=== PATIENT | female | born 1985 | race Caucasian/White ===

== ENCOUNTER 2017-04-12 19:51 | Inpatient (IN) ==
[2017-04-12 13:14] LABS: Bilirubin,Urine Negative (Negative); Blood,Urine Negative (Negative); Color,Urine Yellow (Yellow); Glucose,Urine (UA) Normal (Normal); Ketones,Urine Trace mg/dL (Negative); Leukocyte Esterase,Urine Moderate (Negative); Nitrite,Urine Negative (Negative); PH,Urine 6.5 pH Units (5.0-8.0); Protein,Urine Negative (Neg-Trace); Specific Gravity,Urine 1.015 (1.010-1.025); Urobilinogen,Urine Normal (Normal)
[2017-04-12 13:17] LABS: Bacteria,Urine Few per hpf (None-Few); Hyaline Casts,Urine None Seen per lpf (None-Few); RBC,Urine 0-3 per hpf (0-3); Squamous Epithelial Cell,Urine Many per lpf (None-Few)
[2017-04-12 13:37] LABS: Clarity,Urine Clear (Clear)
--- NOTE | 2017-04-12 15:25 | OB/GYN History & Physical ---
Date of Encounter: 04/12/17 Time of Encounter: 15:18 Assessment and Plan (1) Dichorionic diamniotic twin in third trimester Current visit: Yes Status: Acute 34w4d gestation contractions with cervical change discussed patient with Dr. Grayson will continue to monitor at this time. Will admit for delivery if cervical change continues or SROM. History of Present Illness Chief complaint: Contractions, DI/DI twin HPI: Ms. Jaime is a 31 year old female at 34w4d presents to labor and delivery for evaluation following her OB appointment with Dr. Moreno. Patient reports contractions woke her up through the night and have continued. Patient reports cervix was closed last week and today she was 3cm dilated. Patient denies LOF or VB and reports +FM. Patient had a growth scan on 04/09/2017. Twin A vertex, placenta is posterior EFW 2179g. Twin B Vertex, anterior placenta and EFW 2199. Twins have a 9% difference in weight. Patient has NKDA. Blood type: O Negative, Rubella: Immune, Hep B: Nonreactive, GBS: Unknown. Past Med Surg Social Fam HX - Past Medical History Source: patient Medical history: no medical history Psychiatric history: no psych history - Past Surgical History Surgical History: no surgical history - Social History Smoking Status: Never smoker Smokeless Tobacco Status: No Alcohol use: none Drug use: none Current living situation: Home - Independent Activity Level: Independent ambulation Recent Out of Country Travel Within the Last 8 Weeks: No Exposure or Possible Exposure to Illness During Travel: No - Family History Father Hx Family Cardiac Disorders: Yes (bypass surgery) Hx Family Respiratory Disorders: No Hx Family Cancer: No Hx Family GI Disorders: No Hx Family Genitourinary Disorders: No Hx Family Endocrine Disorder: No Hx Family Musculoskeletal Disorders: No Hx Family Neuromuscular Disorders: No Hx Family Neurologic Disorders: No Hx Family HEENT Disorders: No Hx Family Autoimmune Disorders: No Hx Family Reproductive Disorders: No Hx Family Psychosocial Disorders: No Hx Family Medical Disorders: No Obstetrical History - Pregnancies : 2 Para: 1 Term: 1 : 0 Ab's: 0 Livin Medications and Allergies Aspirin 81 mg 04/12/17 [History] Pepcid 04/12/17 [History] Allergies No Known Allergies Allergy (Verified 04/12/17 12:34) Review of System OB - Constitutional Constitutional ROS IM: no chills, no fever(s), no headache(s) - Cardiovascular Cardiovascular: no chest pain, no edema, no palpitations, no syncope - Respiratory Respiratory: no cough, no dyspnea - Gastrointestinal Gastrointestinal: no abdominal pain, no constipation, no cramping, no diarrhea, no heartburn, no nausea, no vomiting - Genitourinary Genitourinary: no abnormal vaginal bleeding, no dysuria, no flank pain, no urinary frequency, no urinary urgency, no vaginal discharge, no vaginal odor, no vaginal pruritis Exam - Constitutional Constitutional: well developed, well nourished, no acute distress, average body habitus - HEENT HEENT: Normocephaly, Mucus Membranes Moist - Neck Neck exam: full ROM, supple - Lungs Respiratory exam: CTAB - Cardiovascular Cardiovascular exam: RRR, +S1, +S2 - Abdomen Abdomen: Present: bowel sounds normal, gravid, non tender - Extremities Extremities exam: full ROM, normal capillary refill, normal inspection Deep Tendon Reflex Grade: 2+ Normal - Cervix Dilation: 3 (3.5) Effacement: 80 Station: -1 - Uterus Uterus exam: Present: normal size, normal contour - Anus/Rectum Anus/Rectum: Present: normal perianal skin (FHR Twin A 135 bpm moderate variablity +15x15 accels no decels noted. FHR Twin B 145 bpm moderate variability +15x15 accels no decels. Contractions 6.5-7 min apart. ) Results Abnormal lab results Urine Ketones Trace mg/dL (Negative) H 04/12/17 12:56 Ur Leukocyte Esterase Moderate (Negative) H 04/12/17 12:56 Urine Microscopic WBC 3-5 per hpf (0-3) H 04/12/17 12:56 Ur Squamous Epith Cells Many per lpf (None-Few) H 04/12/17 12:56 Ur Culture Indicated? YES (NO) A 04/12/17 12:56 All other labs normal. - VTE Reasons for not Prescribing Prophylaxis: Treatment not Indicated - Low risk for VTE
[2017-04-12] MEDS: Ringers Solution, Lactated 1,000 ML IVC SCH (17:22)
[2017-04-12 17:32] LABS: Basophils # 0.1 K/mcL (0.0-0.2); Basophils % 0.6 %; Eosinophils # 0.1 K/mcL (0.0-0.6); Eosinophils % 0.9 %; Hematocrit 31.3 % (35.3-44.9); Hemoglobin 10.3 g/dL (11.5-15.4); Immature Granulocytes % 1.8 % (0-4); Lymphocytes # 2.2 K/mcL (0.6-4.6); Lymphocytes % 21.4 %; Mean Corpuscular HGB Conc 32.9 g/dL (31.6-35.5); Mean Corpuscular Hemoglobin 26.5 pg (28.0-33.3); Mean Corpuscular Volume 80.5 fL (83.0-100.0); Mean Platelet Volume 10.7 fL (9.4-12.4); Monocytes # 0.8 K/mcL (0.0-1.3); Monocytes % 7.6 %; Platelet Count 145 K/mcL (140-400); Red Blood Count 3.89 M/mcL (3.82-4.97); Red Cell Distribution Width 14.3 % (11.5-14.5); Segmented Neutrophils % 67.7 %
--- NOTE | 2017-04-12 19:30 | OB Labor Progress Note ---
Date of Encounter: 04/12/17 Time of Encounter: 19:26 Labor Progress Note - Subjective Subjective: Patient reports contractions are getting closer together. Patient reports pain is still tolerable. Discussed POC with patient. Patient denies any questions or concerns. - Cervix Cervix: 5/80/-1 - Heart Tones Heart Tones: Twin A: 145 bpm moderate variability +15x15 accels no decels noted. Cat. 1 tracing Twin B: 150 bpm moderate variability +15x15 accels no decels noted. Cat. 1 tracing - [place]: 3-5 min apart - Interventions Interventions: Sve - Plan Plan: Continue monitoring if not delivered repeat Steroids on 04/13/17 at 1818
[~2017-04-12 19:51] MED LIST: Betamethasone Acet/SodPhos 6 MG/ML MDV IM SCH; Penicillin G Potassium 5,000,000 UNIT in D5% in Water (Mini-Bag+) 100 ML IVPB ONE
[2017-04-12] MEDS: Penicillin G Potassium 2,500,000 UNIT in D5% in Water 100 ML IVPB SCH (21:20)
--- NOTE | 2017-04-12 21:37 | OB Labor Progress Note ---
Date of Encounter: 04/12/17 Time of Encounter: 21:35 Labor Progress Note - Subjective Subjective: Patient reports contraction are getting more regular and closer together. Patient reports pain is tolerable at this time. - Cervix Cervix: 6/80/-1 - Heart Tones Heart Tones: Twin A: FHR 145 bpm moderate variability +15x15 accels no decels noted. Twin B: FHR 150 bpm moderate variability +15x15 accels no decels noted. - [place]: 1-4 min apart - Interventions Interventions: SVE - Plan Plan: Continue labor management. Patient may have Nubain or epidural if desires for pain management.
--- NOTE | 2017-04-12 23:37 | OB Labor Progress Note ---
Date of Encounter: 04/12/17 Time of Encounter: 23:35 Labor Progress Note - Subjective Subjective: Patient breathing through contractions. Patient reports pain is getting stronger. - Cervix Cervix: 7/80/-1 - Heart Tones Heart Tones: Twin A: FHR 135 bpm moderate variability +15x15 accels no decels noted. Twin B: FHR 140 bpm moderate variability +15x15 accels no decels noted. - [place]: 1-3 min apart - Interventions Interventions: SVE - Plan Plan: Patient requesting epidural at this time. Anesthesia notified. Will continue labor management.
[2017-04-12] MEDS ORDERED: Epidural Premix (fent/bupiv) 110 ML EP SCH (23:45)
[2017-04-12] MEDS ORDERED: *HR* FentaNYL (PF) 100 MCG/2 ML VIAL EP ONE (23:48)
[2017-04-12] MEDS ORDERED: *HR* Ropivacaine/PF 0.2% 10 ML AMPUL EP ONE (23:48)
[2017-04-12] MEDS ORDERED: Ringers Solution, Lactated 500 ML IVC ONE (23:48)
[2017-04-12] MEDS ORDERED: EPHEDrine 50 MG/ML VIAL IVP PRN (23:48)
--- NOTE | 2017-04-12 23:52 | Anesthesia Evaluation PreOp ---
Date of Encounter: 04/12/17 Time of Encounter: 23:45 - Past History Planned Operation: FIDEL Cardiac History: Denies any Significant Hx Pulmonary History: Denies Any Significant HX [employer] History: Denies Any Significant HX Other Medical History: GERD (with ) Anesthesia History: No Prior Anesthetic Complications, Past Anesthesia (Epidural ) : Yes Alcohol Use: none Drug use: none Medications and Allergies Aspirin 81 mg 04/12/17 [History] Pepcid 04/12/17 [History] Allergies No Known Allergies Allergy (Verified 04/12/17 12:34) - Meds/Allergy Pre-op Review Medications Reviewed: Yes Allergies Reviewed: Yes Beta Blockers on Current Med List: No Anesthesia Results - Labs 04/12/17 17:10 Anesthesia Exam 113/68, 74, 99%, 18 Height: 1.55m Weight: 80.4kg NPO (# of Hours): >4hr Pain Scale: 8 Pain Scale Used: Numeric (1 - 10) - HEENT Pupil (Motor): Pupils equal Mallampati: II Teeth: Normal Oral Opening: Less than or equal to 3 - [employer] LOC: Oriented [employer] Motor: Normal RUE, Normal LUE, Normal RLE, Normal LLE, Normal Face [employer] Sensory: Normal: RUE, LUE, RLE, LLE, Face - Cardiac Rhythm: Regular Murmur: None JVD: No Carotid Bruit: No - Pulmonary Breath Sounds: bilateral Clear Respiratory Effort: Symmetrical Anesthesia Assess/Plan ASA Score: 2 Modified Mart Scale for Level of Consciousness: Cooperative, oriented, and tranquil Anesthetic Plan: Regional Autologous Blood: Yes Monitoring Plan: Standard Monitors Recovery Plan: Other
[2017-04-12] MEDS ORDERED: *HR* FentaNYL (PF) 100 MCG/2 ML VIAL ONE (23:54)
[2017-04-12] MEDS ORDERED: Epidural Premix (fent/bupiv) 110 ML EP ONE (23:54)
[2017-04-12] MEDS ORDERED: ROPIVACAINE HCL/PF 0.5% 30 ML VIAL ONE (23:54)
[2017-04-13] MEDS ORDERED: EPHEDrine 50 MG/ML VIAL ONE ×2 (00:15→10:51)
--- NOTE | 2017-04-13 00:24 | Anesthesia Procedures ---
Date of Encounter: 04/13/17 Time of Encounter: 23:43 Procedures: Anesthesia - Epidural/Spinal Patient ID/Chart reviewed: Yes Patient examined: Yes OB Eval: Gestational age: 34.4 OB Eval: : 2 OB Eval: Hx Para: 1 OB Eval: Dilated at (cm): 7 OB Eval: Contractions: Non-stressed pattern Consent Obtained: Yes Supplemental Oxygen: None/Room Air Site Prep: Aseptic Technique, Sterile prep and drape, 0.5% Chlorhexidine/Alcohol Patient position: upright Local Anesthetic: Lidocaine 1% Amount of Local Anesthetic used: 3 Touhy Needle Gauge: 18 Touhy Needle Depth (cm): 7 Catheter Depth at Skin (cm): 14 Test Dose (1.5% Lido + Epi): Volume given (mls): 4 Test Dose Result: Negative Loading Dose: Fentanyl (mcg): 100 Loading Dose: Other: Ropiv 0.5% 8mL Loading Dose Administered: Thru Catheter Infusion Med: 0.125% Bupivacaine w/ 2 mcg/ml Fentanyl Infusion Rate (mls/hr): 14 (Bolus 4mL q15min; Max 3/hr) Catheter Secured in Place: Tegaderm, Tape Interspace Used: L3-L4 Loss of Resistance (MARIELA): Yes Blood: No CSF: No Paresthesia: No Procedure: x1 attempt. Patient tolerated well. Vitals + FHT's: FHR stable throughout. Decreased BP from 113 to 72 after bolus. Phenylephrine 100mcg and Ephedrine 10mg given. BP returned to 120s. Will continue monitoring. See nursing documentation.
[2017-04-13] MEDS: Penicillin G Potassium 2,500,000 UNIT in D5% in Water 100 ML IVPB SCH ×2 (01:33→05:24)
[2017-04-13] MEDS: Ringers Solution, Lactated 1,000 ML IVC SCH (05:24)
[2017-04-13] MEDS ORDERED: Famotidine 20 MG/2 ML VIAL IVP ONE (06:46)
[2017-04-13] MEDS ORDERED: Epidural Premix (fent/bupiv) 110 ML EP ONE (07:14)
[2017-04-13] MEDS ORDERED: Oxytocin 20 units/ LR 1000 mL 20 UNIT/1,000 ML BAG IVC ONE (08:15)
[2017-04-13] MEDS ORDERED: Ringers Solution, Lactated 2,000 ML ONE (10:52)
[2017-04-13] MEDS ORDERED: *HR* HYDROmorphone (PF) 1 MG/ML SYRINGE IVP PRN (11:30)
[2017-04-13] MEDS ORDERED: Ondansetron 4 MG/2 ML VIAL IVP ONE (11:30)
[2017-04-13] MEDS ORDERED: *HR* Meperidine 25 MG/ML SYRINGE IVP PRN (11:30)
[2017-04-13] MEDS ORDERED: *HR* Promethazine 25 MG/ML VIAL IVP PRN (11:30)
[2017-04-13] MEDS ORDERED: Ringers Solution, Lactated 1,000 ML IVC SCH (11:30)
[2017-04-13] MEDS ORDERED: Lidocaine/EPI 1:200k 2% PF 20 ML VIAL ONE (11:41)
[2017-04-13] MEDS ORDERED: Ondansetron 4 MG/2 ML VIAL ONE (11:42)
[2017-04-13] MEDS ORDERED: *HR* Oxytocin 10 UNIT/ML VIAL IM ONE (11:42)
[2017-04-13] MEDS ORDERED: *HR* Morphine Sulfate/PF 5 MG/10 ML AMPUL ONE (11:44)
--- NOTE | 2017-04-13 11:54 | OB/GYN Procedure Note ---
Section - Date of procedure: 04/13/17 Preop diagnosis: category 2 FHT tracing, other malpresentation Post-op diagnosis: same Procedure: section, other (Normal spontaneous vaginal delivery followed by emergent for recurrent decels and transverse lie) Surgeon: Humphrey Moreno Estimated blood loss (cc): 700 Anesthesia Type: Epidural section complications: none Disposition: PACU Specimens: Placenta - Infant (s) A Infant Delivery Date: 04/13/17 Presentation: vertex Position: JAMAAL Route of delivery: Gender: Male Viability: Viable Pounds: 5 Ounces: 3 at 1 minute: 8 at 5 minutes: 8 Shoulder Dystocia: not encountered Placenta: partial extraction Cord: 3 umbilical vessels B Infant Delivery Date: 04/13/17 Delivery Time: 10:55 Position: LOT Route of delivery: other (Transverse lie) Gender: Male Viability: Viable Pounds: 4 Ounces: 15 at 1 minute: 8 at 5 minutes: 9 Specimens collected: cord blood Placenta: partial extraction Cord: 3 umbilical vessels - Narrative Narrative: Patient's 31-year-old 2 para 1 female at 34 weeks and 6 days gestation presented yesterday in labor inclusively 9 cm dilated was taken to the OR for double setup delivery. She did have epidural in place. She eventually reached complete dilation and was given maternal effort infant a was delivered from vertex presentation without difficulty. Delivery time was 1039 weight was 5 lbs. 3 oz. Apgars of 8 at 1 minute and 8 at 5 minutes. Delivery was over an intact perineum. After cord was clamped and cut perform vaginal exam cannot feel presenting part ultrasound was then performed showing to be in transverse presentation with head on left side. I did discuss with patient options decision was made to attempt version. During attempted version ultrasound was performed which she will prolonged bradycardia. Ultrasound was placed. Heartbeat was noted to be in the 70s. He did occasionally was dropped to the 90s to low 100s however then given was dropped to the 70s given the fact that did not tolerate attempted version decision was made to proceed with emergent section. Epidural was redosed and Perry catheter was placed. Scalpel was used to make Pfannenstiel skin incision was sharply taken down the rectus fascia fascia incised midline fascial incision was extended bluntly bilaterally rectus muscles were divided and peritoneum was entered bluntly. Bladder blade was placed. This point there was noted to be a small amount of fluid was approximately 2 cm rent in the uterus consistent with probable uterine rupture. This was extended bilaterally in infant was delivered from vertex presentation without difficulty head was kept flexed during delivery. weight was found to be pounds 15 ounces Apgars of 8 at 1 minute and 9 at 5 minutes. Placentas were delivered manually without difficulty uterine cavity was massaged free of all residual tissue. Uterus was closed 0 Vicryl in running lock stitch there is some oozing uterus was very thin second imbricating layer was placed over top the first. The left uterine incision was extended down into the broad ligament down low. [id number] stitch was placed with 0 Vicryl in a low broad ligament and hemostasis was ensured. Fascia was then reapproximated with 0 Vicryl in a running manner. Irrigation was performed hemostasis was assured skin edges reapproximated with 4-0 Vicryl. All sponge counts counts are correct patient was taken recovery in good condition.
--- NOTE | 2017-04-13 12:28 | Anesthesia Evaluation Post Op ---
Date of Encounter: 04/13/17 Time of Encounter: 12:21 - Vital Signs Vital Signs: BP 112/67 P 103 R 16 T 97.8 - Lungs Lungs: Clear Ascult./Percussion - Airway Airway: Non-obstructed - Cardiovascular Regular Rate - Mental Status Mental Status: Alert & Oriented, Answers Appropriately - Pain Pain Scale: 3 Pain Scale used: Numeric (1 - 10) - Nausea Vomiting Nausea Vomiting: Not Present - Hydration Hydration: Ice chips, Perry catheter - Discharge PostOp Status: Transfer Patient to floor
[2017-04-13] MEDS ORDERED: Oxytocin 20 units/ LR 1000 mL 20 UNIT/1,000 ML BAG IVC SCH (15:04)
[2017-04-13] MEDS ORDERED: Rho Immune Globulin 1,500 UNIT SYRINGE IM ONE (15:04)
[2017-04-13] MEDS ORDERED: Metoclopramide 10 MG/2 ML VIAL IVP PRN (15:04)
[2017-04-13] MEDS ORDERED: Sennosides 8.6 MG TABLET PO PRN (15:04)
[2017-04-13] MEDS ORDERED: Ondansetron 4 MG/2 ML VIAL IVP PRN (15:04)
[2017-04-13] MEDS ORDERED: Lanolin 7 G OINT...G. TP PRN (15:04)
[2017-04-13] MEDS ORDERED: Simethicone 80 MG TAB.CHEW PO PRN (15:04)
[2017-04-13] MEDS ORDERED: *HR* Morphine 2 MG/ML SYRINGE IVP PRN (15:04)
[2017-04-14 06:29] LABS: Basophils % 0.4 %; Eosinophils % 0.1 %; Hematocrit 25.9 % (35.3-44.9); Immature Granulocytes % 1.6 % (0-4); Lymphocytes # 1.9 K/mcL (0.6-4.6); Lymphocytes % 16.8 %; Mean Corpuscular HGB Conc 30.9 g/dL (31.6-35.5); Mean Corpuscular Hemoglobin 25.5 pg (28.0-33.3); Mean Corpuscular Volume 82.5 fL (83.0-100.0); Mean Platelet Volume 9.9 fL (9.4-12.4); Monocytes # 0.9 K/mcL (0.0-1.3); Monocytes % 8.5 %; Neutrophils # 8.1 K/mcL (1.6-8.9); Platelet Count 139 K/mcL (140-400); Red Blood Count 3.14 M/mcL (3.82-4.97); Red Cell Distribution Width 14.5 % (11.5-14.5); Segmented Neutrophils % 72.6 %
[2017-04-14] MEDS: cephALEXin 500 MG CAPSULE PO SCH (08:23)
[2017-04-14] MEDS: Prenatal Vit/FA 1 EACH TABLET PO SCH (08:24)
[2017-04-14] MEDS: Azithromycin 250 MG TABLET PO SCH (08:24)
--- NOTE | 2017-04-14 11:49 | OB/GYN Progress Note ---
Date of Encounter: 04/14/17 Time of Encounter: 11:47 - Assessment and Plan (1) Delivered by section Current Visit: Yes Status: Acute Second twin delivered via . Routine PP care (2) Vaginal delivery Current Visit: Yes Status: Acute First twin delivered vaginally. Routine care. (3) Dichorionic diamniotic twin in third trimester Current Visit: Yes Status: Resolved Subjective - Subjective Principal diagnosis: s/p vaginal and Interval history: Patient doing well. She states the abdominal incision does not hurt as much as her previous vaginal delivery. She is ambulating and eating without difficulty. Patient reports: appetite normal, voiding normally, pain well controlled, ambulating normally : doing well Objective - Vital Signs Latest vital signs: Vital Signs Temp Pulse Resp BP Pulse Ox 04/14/17 08:35 97.9 F 108 16 111/74 100 04/14/17 06:22 16 04/14/17 01:18 16 04/14/17 00:07 98.0 F 87 16 122/73 96 04/13/17 20:20 97.9 F 87 18 106/73 99 04/13/17 17:30 97.9 F 106 16 137/73 99 04/13/17 16:30 97.5 F L 101 16 118/75 97 04/13/17 15:30 97.6 F 110 16 115/71 96 04/13/17 15:00 97.9 F 116 16 119/73 97 04/13/17 14:30 98.3 F 128 16 111/68 96 Intake and Output 04/13/17 04/14/17 04/14/17 23:59 07:59 15:59 Intake Total 600 / 600 Output Total 600 / 600 2325 / 2325 Balance -600 / -600 -2325 / -2325 600 / 600 Intake: Oral 600 / 600 Output: Emesis 200 / 200 Catheter 400 / 400 5 / 2325 Other: # Voids 1 Weight 76.2 kg Patient Weight 04/14/17 23:59 Weight 76.2 kg - Exam Lungs: bilateral: normal Chest: Normal S1, Normal S2 Extremities: Present: normal Abdomen: Present: normal appearance, soft. Absent: distention, tenderness Incision: Present: normal, dry, intact Uterus: Present: normal, firm - Labs Labs: Laboratory Results - last 24 hr 0804/14/17 04/14/17 14:16 06:11 06:12 WBC 11.1 RBC 3.14 L Hgb 8.0 L D Hct 25.9 L MCV 82.5 L MCH 25.5 L MCHC 30.9 L RDW 14.5 Plt Count 139 L MPV 9.9 Immature Gran % 1.6 Seg Neutrophils % 72.6 Lymphocytes % 16.8 Monocytes % 8.5 Eosinophils % 0.1 Basophils % 0.4 Neutrophils # 8.1 Lymphocytes # 1.9 Monocytes # 0.9 Eosinophils # 0.0 Basophils # 0.0 Screen NEGATIVE Baby's Blood Type O RH NEGATIVE O RH POSITIVE Mother's Blood Type O RH NEGATIVE O RH NEGATIVE Rhogam Indicated YES YES Rhogam Req for Mother 1
[2017-04-14] MEDS: Ibuprofen 600 MG TABLET PO PRN ×2 (16:32→22:06)
[2017-04-15] MEDS: Ibuprofen 600 MG TABLET PO PRN ×2 (08:13→19:05)
[2017-04-15] MEDS: Prenatal Vit/FA 1 EACH TABLET PO SCH (08:14)
[2017-04-15] MEDS: Azithromycin 250 MG TABLET PO SCH (08:14)
[2017-04-15] MEDS: cephALEXin 500 MG CAPSULE PO SCH (08:14)
--- NOTE | 2017-04-15 09:40 | OB/GYN Progress Note ---
Date of Encounter: 04/15/17 Time of Encounter: 09:37 - Assessment and Plan (1) Delivered by section Current Visit: Yes Status: Acute Doing well s/p c-sec of twin B, doing well. Taking only Motrin. (2) Vaginal delivery Current Visit: Yes Status: Acute Doing well. Will keep one more day. Subjective - Subjective Principal diagnosis: s/p of A, c-sec of B Interval history: Doing well, good pain control with Motrin, taking regular diet. Objective - Vital Signs Latest vital signs: Vital Signs Temp Pulse Resp BP Pulse Ox 04/15/17 08:15 97.7 F 86 16 120/82 96 04/14/17 19:30 98.3 F 88 16 117/55 97 04/14/17 16:00 98.1 F 80 18 123/81 97 Intake and Output 04/14/17 04/15/17 04/15/17 23:59 07:59 15:59 Intake Total 240 / 240 800 / 800 Output Total 1100 / 1100 Balance 240 / 240 -300 / -300 Intake: Oral 240 / 240 800 / 800 Output: Urine 1100 / 1100 Other: Meal Dinner Percent of Meal Consumed 70% # Voids 1 Weight 78.2 kg Patient Weight 04/15/17 23:59 Weight 78.2 kg - Exam Lungs: bilateral: normal Chest: Normal S1, Normal S2 Extremities: Present: normal Uterus: Present: normal - Labs Labs: Laboratory Results - last 24 hr 04/13/17 04/14/17 14:16 06:11 Screen NEGATIVE Baby's Blood Type O RH NEGATIVE O RH POSITIVE Mother's Blood Type O RH NEGATIVE O RH NEGATIVE Rhogam Indicated YES YES Rhogam Req for Mother 1
[2017-04-16] MEDS: *HR* OxyCODONE/APAP 5/325 TABLET PO PRN ×2 (01:25→11:56)
[2017-04-16] MEDS: Ibuprofen 600 MG TABLET PO PRN (05:50)
[2017-04-16] MEDS: Azithromycin 250 MG TABLET PO SCH (07:56)
[2017-04-16] MEDS: cephALEXin 500 MG CAPSULE PO SCH (07:56)
[2017-04-16] MEDS: Prenatal Vit/FA 1 EACH TABLET PO SCH (07:56)
[2017-04-16 08:05] VITALS: BP 106/74
--- NOTE | 2017-04-16 13:20 | Discharge Summary ---
Date of Encounter: 04/16/17 Time of Encounter: 13:15 - Discharge Diagnosis (1) Delivered by section Priority: Primary Status: Acute Comments: Pt meeting all milestones, pain well managed on po pain medication. no bowel or bladder concerns. Desires discharge (2) Vaginal delivery Priority: Primary Status: Acute (3) Dichorionic diamniotic twin in third trimester Priority: Primary Status: Resolved (4) anemia Priority: Secondary Status: Acute Comments: Rx given for iron - Discharge Medications Prescriptions: OxyCODONE/APAP 5/325 [Percocet 5/325 MG] 1 each PO Q4HR PRN #20 tab PRN Reason: Moderate pain 4-6 Ibuprofen [Motrin] 600 mg PO Q6HR PRN #60 tab PRN Reason: Cramping Azithromycin [Zithromax] 500 mg PO Q24H #4 tab cephALEXin [Keflex] 500 mg PO DAILY #4 Docusate [Colace] 100 mg PO BID #60 Ferrous Sulfate 325 mg PO DAILY #60 tab Home Medications: Azithromycin [Zithromax] 500 mg PO Q24H #4 tab 04/16/17 [Rx] Docusate [Colace] 100 mg PO BID #60 04/16/17 [Rx] Ferrous Sulfate 325 mg PO DAILY #60 tab 04/16/17 [Rx] Ibuprofen [Motrin] 600 mg PO Q6HR PRN #60 tab 04/16/17 [Rx] Lanolin [Lansinoh] 1 appl TP TID PRN 04/16/17 [Rx] OxyCODONE/APAP 5/325 [Percocet 5/325 MG] 1 each PO Q4HR PRN #20 tab 04/16/17 [Rx ] Vit/FA 1 each PO DAILY tab 04/16/17 [Rx] Simethicone [Gas-X] 80 mg PO TID PRN 04/16/17 [Rx] cephALEXin [Keflex] 500 mg PO DAILY #4 04/16/17 [Rx] Allergies/Adverse Reactions: Allergies No Known Allergies Allergy (Verified 04/12/17 12:34) Data Procedures and tests throughout hospitalization: Laboratory Tests 04/12/17 04/12/17 04/13/17 12:56 17:10 14:16 WBC 10.3 RBC 3.89 Hgb 10.3 L Hct 31.3 L MCV 80.5 L MCH 26.5 L MCHC 32.9 RDW 14.3 Plt Count 145 MPV 10.7 Immature Gran % 1.8 Seg Neutrophils % 67.7 Lymphocytes % 21.4 Monocytes % 7.6 Eosinophils % 0.9 Basophils % 0.6 Neutrophils # 7.0 Lymphocytes # 2.2 Monocytes # 0.8 Eosinophils # 0.1 Basophils # 0.1 Urine Color Yellow Urine Clarity Clear Urine pH 6.5 Ur Specific [place] 1.015 Urine Protein Negative Urine Glucose (UA) Normal Urine Ketones Trace H Urine Blood Negative Urine Nitrite Negative Urine Bilirubin Negative Urine Urobilinogen Normal Ur Leukocyte Esterase Moderate H Urine Microscopic RBC 0-3 Urine Microscopic WBC 3-5 H Ur Squamous Epith Cells Many H Urine Bacteria Few Hyaline Casts None Seen Ur Culture Indicated? YES A Screen Baby's Blood Type O RH NEGATIVE Mother's Blood Type O RH NEGATIVE Rhogam Indicated YES Rhogam Req for Mother 04/14/17 04/14/17 06:11 06:12 WBC 11.1 RBC 3.14 L Hgb 8.0 L D Hct 25.9 L MCV 82.5 L MCH 25.5 L MCHC 30.9 L RDW 14.5 Plt Count 139 L MPV 9.9 Immature Gran % 1.6 Seg Neutrophils % 72.6 Lymphocytes % 16.8 Monocytes % 8.5 Eosinophils % 0.1 Basophils % 0.4 Neutrophils # 8.1 Lymphocytes # 1.9 Monocytes # 0.9 Eosinophils # 0.0 Basophils # 0.0 Urine Color Urine Clarity Urine pH Ur Specific [place] Urine Protein Urine Glucose (UA) Urine Ketones Urine Blood Urine Nitrite Urine Bilirubin Urine Urobilinogen Ur Leukocyte Esterase Urine Microscopic RBC Urine Microscopic WBC Ur Squamous Epith Cells Urine Bacteria Hyaline Casts Ur Culture Indicated? Screen NEGATIVE Baby's Blood Type O RH POSITIVE Mother's Blood Type O RH NEGATIVE Rhogam Indicated YES Rhogam Req for Mother 1 Date of admission: 04/12/17 19:51 Primary care physician: Eric Sotelo Discharging clinician: Ivonne Hernandez Anticipated date of discharge: 04/16/17 - Patient Status Disposition: Home, Self-Care Condition: Good Functional capacity at discharge: independent ambulation Overall status at discharge: patient is back to baseline - Discharge Instructions Instructions: Anemia (GEN) Follow Up With: Eric Sotelo, [Primary Care Provider] - Humphrey Moreno MD [Partnered Physician] - Forms: Work/School Release - Diet and Activity Activity: resume usual activities as tolerated Diet: regular diet Hospital Course Reason for admission: IUP - Delivery: , section Episiotomy: none Laceration: none Discharge diagnosis: delivery [place] baby: twins Hospital course: Section - Date of procedure: 04/13/17 Preop diagnosis: category 2 FHT tracing, other malpresentation Post-op diagnosis: same Procedure: section, other (Normal spontaneous vaginal delivery followed by emergent for recurrent decels and transverse lie) Surgeon: Humphrey Moreno Estimated blood loss (cc): 700 Anesthesia Type: Epidural section complications: none Disposition: PACU Specimens: Placenta - Infant (s) A Delivery Date: 04/13/17 Presentation: vertex Position: JAMAAL Route of delivery: Gender: Male Viability: Viable Pounds: 5 Ounces: 3 at 1 minute: 8 at 5 minutes: 8 Shoulder Dystocia: not encountered Placenta: partial extraction Cord: 3 umbilical vessels B Infant Delivery Date: 04/13/17 Infant Delivery Time: 10:55 Position: LOT Route of delivery: other (Transverse lie) Gender: Male Viability: Viable Pounds: 4 Ounces: 15 at 1 minute: 8 at 5 minutes: 9 Specimens collected: cord blood Placenta: partial extraction Cord: 3 umbilical vessels Stable in PP and appropriate for discharge Time Attestation: Total time spent providing and/or coordinating discharge services: - VTE Reasons for not Prescribing Prophylaxis: Treatment not Indicated - Low risk for VTE Documentation of Mechanical Device: Intermittent pneumatic compression device Exam - Constitutional Vitals: Temp Pulse Resp BP Pulse Ox 98.3 F 69 16 106/74 97 04/16/17 07:30 04/16/17 07:30 04/16/17 08:00 04/16/17 07:30 04/16/17 07:30 General appearance IM: A&O X 3 - Respiratory Respiratory exam: Present: CTAB - Cardiovascular Cardiovascular exam IM: Present: RRR - GI/Abdominal GI/Abdominal exam IM: normal bowel sounds, soft Incision: normal, dressed (steristrips) - Uterine Tone: Firm Uterus Position: At Umbilicus - Extremities Exam Extremities exam IM: Present: normal capillary refill, normal inspection - Neurological Exam Neurological exam: normal gait, oriented X3 - Psychiatric Additional comments: reports stable mood. Pt states is have periods of anxiety and concern due to maternal separation.
== END 2017-04-16 16:45 | disposition home or self-care (01) | DRG 540 ==
LOC: 1NENULAB → 1NENUOBS 04-13 03:44